=== PATIENT | female | born 1990 | race African-American/Black ===

== ENCOUNTER 2020-02-10 07:44 | Day surgery (SDC) | payer BC ==
[2020-02-07 10:58] LABS: BASOPHILS 0.5 % (0-2); EOSINOPHILS 7.2 % (0-7); HEMATOCRIT 35.8 % (36.0-48.0); HEMOGLOBIN 11.9 g/dL (12-16); IMMATURE GRANULOCYTES 0.2 % (0-5); LYMPHOCYTES 30.4 % (15-50); MCH 29.5 pg (26.0-34.0); MCHC 33.2 g/dL (31.0-37.0); MCV 88.6 fL (80.0-100.0); MONOCYTES 7.2 % (2-11); NEUTROPHILS 54.5 % (40-80); RBC 4.04 10x6/uL (4.00-5.40); RDW 13.7 % (11.5-14.5); WBC 5.7 10x3/uL (4.8-10.8)
[2020-02-07 11:04] LABS: PLATELET COUNT 181 10x3/uL (130-400)
[~2020-02-10] VITALS: Ht 172.7 cm; Wt 81.6 kg
[~2020-02-10 07:44] MED LIST: IBUPROFEN600 MG PO; PERCOCET 5-3251 TAB PO; PRENAVITE1 TAB PO
[2020-02-10 08:57] VITALS: BP 106/60; Ht 172.7 cm; Wt 81.6 kg
[2020-02-10 09:13] LABS: HCG URINE NEGATIVE (NEGATIVE)
--- NOTE | 2020-02-18 10:40 | OP ---
PATIENT NAME: BRUNO MELCHOR MEDICAL RECORD: [id number] :89 LOCATION:D.OPS ADMISSION DATE: SURGEON: JESSICA GOMEZ MD DATE OF OPERATION: 02/10/2020 DATE OF SERVICE: 02/10/2020 PREOPERATIVE DIAGNOSES: 1. Lost intrauterine device strings. 2. Contraception desired. POSTOPERATIVE DIAGNOSES: 1. Lost intrauterine device strings. 2. Contraception desired. PROCEDURES: 1. Exam under anesthesia. 2. Removal of IUD. 3. Placement of IUD. SURGEON: Jessica Gomez MD ANESTHESIOLOGIST: Dr. Howe. ANESTHETIC: General. FINDINGS: IUD string was not identified at the cervical os. Unremarkable cervix and vagina was noted. The Mirena that was retrieved, densely adherent to the uterine wall. Uterus sounds to 7.5 cm. SPECIMENS REMOVED: IUD. ESTIMATED BLOOD LOSS: Minimal. FLUIDS: 500 cc lactated Ringer's. URINE OUTPUT: Quantity sufficient void prior to this procedure. COMPLICATIONS: None. DRAINS: None. INDICATIONS: The patient is a 29-year-old female using a Mirena IUD for contraception and desired another. The patient states previous provider cut the strings short due to partner being able to palpate. Attempts were made in the clinic to remove the IUD, but attempts failed. The patient was consented for exam under anesthesia and removal of IUD with possible hysteroscopy. DESCRIPTION OF PROCEDURE: After informed consent was assured, the patient was taken to the operating room where anesthetic was obtained [facility] The patient was now draped and prepped. A speculum was introduced in the vagina, and using Augustin stone forceps the lower segment was probed and the IUD was grasped and withdrawn from the uterus. It was noted that the IUD was adherent to the uterine wall. This does produce some minimal spotting. Uterus was now sounded to approximately 7.5 cm. The Mirena IUD OPERATIVE REPORT [id number] BRUNO MELCHOR obtained for the patient was now opened and the depths gauge set to 7.5. With the arms folded into the applicator, the IUD was now placed through the cervical os and the arms allowed to deploy. The IUD has continued to be advanced to the fundus until it reached appropriate depth. The Mirena application device was now withdrawn and the strings cut to approximately 2.5 cm. The speculum was removed from the vagina. Sponge, lap, and needle counts correct and the patient was awakened and went to the recovery area in stable condition. TRANSINT:[id number] Voice Confirmation ID: [id number] DOCUMENT ID: [id number] JESSICA GOMEZ MD at 1040 CC: [id number] DICTATION DATE: 02/18/20726 [employer] SUPERVISOR: 02/18/20926 [facility] 02/10/20 [place] [id number]
== END 2020-02-10 14:35 | disposition home or self-care (01) ==
LOC: D.OPS 07:44 → D.PAN 09:45 → D.OPS 10:00
PROVIDERS: ATTEND Obstetrics & Gynecology
DX: Z30.433 Encounter for removal and reinsertion of intrauterine contraceptive device (principal); Z30.9 Encounter for contraceptive management, unspecified